=== PATIENT | female | born 1960 | race Caucasian/White ===

== ENCOUNTER 2025-02-11 10:30 | Outpatient (RCR) | payer MEDICAID, MEDICARE, SELFPAY ==
--- NOTE | 2025-01-28 10:10 | PTNOTE_ITS ---
PT OP Initial Eval Patient Information Outpatient Physical Therapy Treatment Date: 01/28/25 Visit Reasons: low back pain Medical Diagnosis: M59.50 Treatment Dx #1: LBP with radiculopathy Start of Care: 01/28/25 Date of Onset: 5 months ago Smoking Status Smoking Status: Never smoker Initial Assessment Subjective: Pt is 64 yr old female who reports she bent down this summer and felt LBP on the L side and it sometimes runs down the L LE to the knee. Increased pain with bending fwd and lifting and she gets stuck and uses hands to stand back up. When she has a painful episode she has difficulty walking straight. The chiropractor has helped relieve pain. PMH: hysterecomy, hypothyroidism Imaging: with provider Pt goal; to not have pain with walking and bending over Objective: Trunk ArOM: ? B SB 50% of normal with pain ? Extension: 20% with pain around L4-5, L5-S1 ? Flexion: 10 from floor with LBP ? B rotation: 60% with pain to the R on L side ? TTP: moderate paraspinals L5-S1 worse on L side ? Neuro: L SLR: positive AMY's: negative L Gaenslen's: negative L SL compression: negative on L Assessment: Pt presents with trunk flexion and extension sensitivity and overlying myofascial pain ? and TTP of lumbar paraspinals consistent with ? lower lumbar disc bulge(s) with radiculopathy. SI joint testing was negative for pain referral. Pt requires skilled therapy and has poor/fair rehab potential to meet goals. Eval ?followed by HEP printout. Short Term and Fraud Prevention Analyst Goals 1. Ind with HEP ? 2. Improved sitting/standing tolerance to 30 minutes with <=4/10 LBP ? 3. Decreased lower paraspinal TTP from mod to min 4. Improved HH chore tolerance to at least 30 minutes with <=3/10 LBP and no ?increase in LE ssx Treatment Plan 1. Manual therapy ? 2. Therex ? 3. Modalities as indicated, moist heat, ice, estim, mechanical traction Frequency and Duration: 1-2x a week for 12 Rx sessions plus the evaluation Certification Dates: 01/28/25 to 04/28/25 Procedure Charges OP PT Eval Mod Complex 30 minutes: Yes
--- NOTE | 2025-02-02 14:14 | PT.ODAYNRPT ---
PT Outpatient Daily Note OP Daily Note Outpatient Physical Therapy Treatment Date: 02/02/25 Visit Reasons: low back pain Subjective: Doing HEP with some LBP Objective: See F/S for therex Assessment: Mild increase in LBP with trunk extension in prone Plan: Continue per POC Length of Time (minutes) of Treatment: 30 Minutes Procedure Charges Therapeutic Exercise 30 minutes: Yes
--- NOTE | 2025-02-09 11:41 | PT.ODAYNRPT ---
PT Outpatient Daily Note OP Daily Note Outpatient Physical Therapy Treatment Date: 02/09/25 Visit Reasons: low back pain Subjective: Less LBP since last visit Objective: See F/S for therex Assessment: Good response to therapy interventions last visit. Pt stoop bends and round the back but can correct after lifting education today. Mild increase in LBP with trunk extension in prone Plan: Continue per POC Length of Time (minutes) of Treatment: 30 Minutes Procedure Charges Therapeutic Exercise 30 minutes: Yes
--- NOTE | 2025-02-11 17:32 | PT.ODAYNRPT ---
PT Outpatient Daily Note OP Daily Note Outpatient Physical Therapy Treatment Date: 02/11/25 Visit Reasons: low back pain Subjective: Less LBP since last visit Objective: See F/S for therex Assessment: Good response to therapy interventions and prone extension. Plan: Continue per POC Length of Time (minutes) of Treatment: 30 Minutes Procedure Charges Therapeutic Exercise 30 minutes: Yes
== END 2025-02-25 23:59 | disposition home or self-care (01) ==
LOC: CPTX 10:30
PROVIDERS: PCP Student in an Organized Health Care Education/Training Program; Referring Provider Student in an Organized Health Care Education/Training Program; Visit Provider Student in an Organized Health Care Education/Training Program
DX: M54.16 Radiculopathy, lumbar region (principal); R26.2 Difficulty in walking, not elsewhere classified
CPT/HCPCS: 97110; 97162